=== PATIENT | male | born 1970 | race Caucasian/White ===

== ENCOUNTER 2025-07-12 19:22 | Observation (INO) | payer OTHER ==
[~2025-07-12] VITALS: Ht 188 cm; Wt 96.4 kg
[2025-07-12] MEDS: MORPHINE 4 MG/ML 1 ML VIAL IV PRN (20:00)
[2025-07-12] MEDS: ONDANSETRON 4MG/2ML VIAL IV ONE (20:01)
[2025-07-12 20:15] LABS: BASO # 0.1 10^3/uL (0.0-0.2); BASO % 0.7 % (0.0-1.0); EOS # 0.1 10^3/uL (0.0-0.5); EOS % 1.3 % (0.0-3.0); LYMPH # 1.4 10^3/uL (1.5-5.0); LYMPH % 14.7 % (24.0-44.0); MONO # 1.3 10^3/uL (0.0-0.8); MONO % 13.8 % (2.0-8.0); NEUTROPHILS # 6.5 10^3/uL (1.5-8.5); NEUTROPHILS % 69.2 % (36.0-66.0); PLATELET COUNT, AUTOMATED 240 10^3/uL (150-450)
[2025-07-12 20:27] LABS: INR 0.96
[2025-07-12 20:39] LABS: ETHYL ALCOHOL (ETHANOL) 0.262 % (0.000-0.010)
[2025-07-12 20:40] LABS: ALT/SGPT 31 U/L (7.0-40); AST/SGOT 36 U/L (<34); CALCIUM LEVEL 8.8 MG/DL (8.5-10.1); CARBON DIOXIDE LEVEL 24 MMOL/L (20-31); CHLORIDE LEVEL 98 MMOL/L (98-107); CREATININE FOR GFR 0.73 MG/DL (0.70-1.30); GLOMERULAR FILTRATION RATE > 90.0 (>56); POTASSIUM SERUM 4.3 MMOL/L (3.5-5.1); SODIUM LEVEL 135 MMOL/L (136-145)
[2025-07-12] MEDS ORDERED: THERTAB52 PO (21:05)
[2025-07-12] MEDS ORDERED: HOME MED LIST COMPLETE! XX SCH (21:10)
[2025-07-12] MEDS: MORPHINE 4 MG/ML 1 ML VIAL IV ONE (21:16)
[2025-07-13] VITALS (13 sets, daily range): BP systolic 124–136; BP diastolic 68–80; TEMP 97.5–99.2; O2SAT 95–100
[2025-07-13] MEDS ORDERED: ONDANSETRON 4MG/2ML VIAL IV PRN ×2 (00:15→14:30)
[2025-07-13] MEDS ORDERED: MORPHINE 4 MG/ML 1 ML VIAL IV PRN ×2 (00:15)
[2025-07-13] MEDS: ACETAMINOPHEN *IV* 1,000 MG in IV 1 EA IV SCH (03:01)
[2025-07-13] MEDS: LR 1,000 ML IV SCH (03:33)
[2025-07-13 07:23] LABS: PLATELET COUNT, AUTOMATED 233 10^3/uL (150-450)
[2025-07-13 07:57] LABS: CALCIUM LEVEL 8.5 MG/DL (8.5-10.1); CARBON DIOXIDE LEVEL 24 MMOL/L (20-31); CHLORIDE LEVEL 105 MMOL/L (98-107); CREATININE FOR GFR 0.82 MG/DL (0.70-1.30); GLOMERULAR FILTRATION RATE > 90.0 (>56); POTASSIUM SERUM 4.4 MMOL/L (3.5-5.1); SODIUM LEVEL 140 MMOL/L (136-145)
[2025-07-13] MEDS ORDERED: MIDAZOLAM INJ 2 MG/2 ML VIAL As Ordered ONE (12:14)
[2025-07-13] MEDS ORDERED: LIDOCAINE 2% 100 MG/5 ML SDV (FOR ANES.) As Ordered ONE (12:15)
[2025-07-13] MEDS ORDERED: dexAMETHasone 4 MG/ML 1 ML VIAL As Ordered ONE (12:15)
[2025-07-13] MEDS ORDERED: ONDANSETRON 4MG/2ML VIAL As Ordered ONE (12:15)
[2025-07-13] MEDS ORDERED: ACETAMINOPHEN 1000MG/100ML IV BAG As Ordered ONE (12:49)
[2025-07-13] MEDS: TRANEXAMIC ACID 100 MG/ML 10ML VIAL As Ordered ONE (12:50)
[2025-07-13] MEDS ORDERED: KETOROLAC 30 MG/ML 1 ML VIAL As Ordered ONE (14:08)
[2025-07-13] MEDS ORDERED: HYDROMORPHONE HCL 0.5 MG/0.5 ML SYRINGE IV PRN (14:30)
[2025-07-13] MEDS: THIAMINE 100 MG TAB PO SCH (15:25)
[2025-07-13] MEDS: FOLIC ACID 1 MG TAB PO SCH (15:25)
[2025-07-13] MEDS: MULTIVITAMINS/MINERALS THERAP 1 TAB PO SCH (15:25)
[2025-07-13] MEDS: PERCOCET 5MG/325MG TAB PO PRN (15:29)
[2025-07-13] MEDS: ceFAZolin SODIUM 2 GM in DEXTROSE 5% (D5W) ADV/MINI-BAG 50 ML IV SCH (17:42)
[2025-07-13] MEDS: MORPHINE 4 MG/ML 1 ML VIAL IV PRN (18:35)
[2025-07-14] VITALS: BP 118/73; TEMP 97.7; O2SAT 95
[2025-07-14 04:00] VITALS: BP 116/77; TEMP 98.6; O2SAT 97
[2025-07-14 05:33] VITALS: BP 116/77
[2025-07-14 06:38] LABS: BASO # 0.0 10^3/uL (0.0-0.2); BASO % 0.3 % (0.0-1.0); EOS # 0.0 10^3/uL (0.0-0.5); EOS % 0.3 % (0.0-3.0); LYMPH # 1.2 10^3/uL (1.5-5.0); LYMPH % 12.0 % (24.0-44.0); MONO # 1.5 10^3/uL (0.0-0.8); MONO % 14.8 % (2.0-8.0); NEUTROPHILS # 7.2 10^3/uL (1.5-8.5); NEUTROPHILS % 72.4 % (36.0-66.0); PLATELET COUNT, AUTOMATED 208 10^3/uL (150-450)
[2025-07-14 07:07] LABS: CALCIUM LEVEL 8.3 MG/DL (8.5-10.1); CARBON DIOXIDE LEVEL 26 MMOL/L (20-31); CHLORIDE LEVEL 102 MMOL/L (98-107); CREATININE FOR GFR 0.63 MG/DL (0.70-1.30); GLOMERULAR FILTRATION RATE > 90.0 (>56); POTASSIUM SERUM 4.3 MMOL/L (3.5-5.1); SODIUM LEVEL 137 MMOL/L (136-145)
[2025-07-14 08:00] VITALS: BP_SYST 117; BP_DIAS 78; BP_DIAS 83; TEMP 100; O2SAT 98
[2025-07-14] MEDS: ENOXAPARIN 40 MG/0.4 ML SYRINGE (J1650 PER 10MG) SC SCH (09:00)
[2025-07-14] MEDS ORDERED: PERC5TAB12 PO (11:36)
[2025-07-14 12:00] VITALS: BP 118/75; TEMP 100.2; O2SAT 98
[2025-07-14] MEDS ORDERED: ASPI81TA26 PO (12:30)
== END 2025-07-14 13:42 | disposition home or self-care (01) ==
LOC: M ED 19:22 → M ED INP 19:23 → UNDOADMOB 07-13 00:14 → INTOOBSV 07-13 00:14 → M MSPAV 07-13 03:19 → M ED INP 07-13 03:19 → M MSPAV 07-13 03:19 → UNDODISOB 07-14 13:42
PROVIDERS: ADMIT Student in an Organized Health Care Education/Training Program; ATTEND General Practice
DX: S82.251A Displaced comminuted fracture of shaft of right tibia, initial encounter for closed fracture (principal); S82.451A Displaced comminuted fracture of shaft of right fibula, initial encounter for closed fracture; W01.10XA Fall on same level from slipping, tripping and stumbling with subsequent striking against unspecified object, initial encounter; Y92.010 Kitchen of single-family (private) house as the place of occurrence of the external cause; Y93.K1 Activity, walking an animal; Y99.8 Other external cause status; E87.1 Hypo-osmolality and hyponatremia; F10.20 Alcohol dependence, uncomplicated
CPT/HCPCS: 27759; 29515; 36415; 70450; 71045; 72125; 73590; 73610; 73700; 76000; 80048; 80076; 82077; 85025; 85027; 85610; 85730; 86850; 86900; 86901; 93005; 93041; 94760; 96361; 96365; 96366; 96367; 96375; 96376; 97116; 97161; 99285; A4649; C1713; J0131; J0665; J0688; J1100; J1885; J2250; J2405; J3010

== ENCOUNTER → 2025-07-23 | Outpatient (CLI) | payer OTHER ==
[~2025-07-23] MED LIST: ASPI81TA26 PO; PERC5TAB12 PO; THERTAB52 PO
== END ==
LOC: M SOG 07:38
PROVIDERS: ATTEND Physician Assistant
DX: M79.604 Pain in right leg (principal)

== ENCOUNTER → 2025-09-17 | Outpatient (CLI) | payer OTHER | LOC: M SOG 07:48 | PROVIDERS: ATTEND Physician Assistant | DX: S82.301D Unspecified fracture of lower end of right tibia, subsequent encounter for closed fracture with routine healing (principal); S82.301A Unspecified fracture of lower end of right tibia, initial encounter for closed fracture; W18.30XA Fall on same level, unspecified, initial encounter; Y92.009 Unspecified place in unspecified non-institutional (private) residence as the place of occurrence of the external cause ==